=== PATIENT | female | born 1970 | race Caucasian/White ===

== ENCOUNTER → 2018-05-14 | Outpatient (CLI) | payer OTHER | LOC: BMCIMAGING 14:30 | PROVIDERS: ATTEND Internal Medicine | DX: Z12.31 Encounter for screening mammogram for malignant neoplasm of breast (principal); R92.8 Other abnormal and inconclusive findings on diagnostic imaging of breast ==

== ENCOUNTER → 2018-05-20 | Outpatient (CLI) | payer OTHER | LOC: BMCIMAGING 11:41 | PROVIDERS: ATTEND Internal Medicine | DX: N60.01 Solitary cyst of right breast (principal) ==

== ENCOUNTER → 2018-11-11 | Outpatient (CLI) | payer OTHER | LOC: BMCIMAGING 10:58 | PROVIDERS: ATTEND Internal Medicine | DX: R92.8 Other abnormal and inconclusive findings on diagnostic imaging of breast (principal) ==